=== PATIENT | male | born 1970 ===

== ENCOUNTER 2021-08-18 13:30 | Emergency (ER) | payer SELFPAY ==
[2021-08-18] MEDS ORDERED: predniSONE 20 MG TAB PO ONE (14:28)
[2021-08-18] MEDS ORDERED: FAMOTIDINE 20 MG TAB PO ONE (14:48)
[2021-08-18] MEDS ORDERED: diphenhydrAMINE 25 MG/10 ML ORAL LIQUID PO ONE (14:48)
--- NOTE | 2021-08-18 14:49 | Emergency Department Report ---
HPI - General Chief Complaint: Allergic Reaction Time Seen by Provider: 08/18/21 13:56 ED Past Medical Hx - Medications Home Medications: Home Medications Medication Instructions Recorded Confirmed Last Taken Type predniSONE 10 mg PO QDAY #10 tab 08/18/21 Unknown Rx predniSONE [Deltasone] 20 mg PO QDAY #5 tab 08/18/21 Unknown Rx predniSONE [Deltasone] 40 mg PO QDAY 5 Days #10 tablet 08/18/21 Unknown Rx ED Review of Systems ROS: Stated complaint: ALLERGIC REACTION, EYE SWOLLEN Other details as noted in HPI Physical Exam - Physical Exam Vital Signs: Vital Signs 08/18/21 08/18/21 08/18/21 13:33 13:59 14:02 Temperature 98 F 98.9 F Pulse Rate 75 63 Respiratory 20 15 Rate Blood Pressure 139/87 112/70 [Right] O2 Sat by Pulse 100 100 98 Oximetry ED Course Vital Signs 08/18/21 08/18/21 08/18/21 13:33 13:59 14:02 Temperature 98 F 98.9 F Pulse Rate 75 63 Respiratory 20 15 Rate Blood Pressure 139/87 112/70 [Right] O2 Sat by Pulse 100 100 98 Oximetry Critical care attestation.: If time is entered above; I have spent that time in minutes in the direct care of this critically ill patient, excluding procedure time. ED Disposition Condition: Stable
--- NOTE | 2021-08-18 14:55 | Emergency Department Report ---
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 He is not known to myself previously. The patient states he does not have a local primary care doctor. The patient was referred to the emergency room by a local medical clinic for nontraumatic facial swelling which is painless. The patient reports that he was in his usual state of health up until yesterday, while he was working on a tree outside. He believes he may have been exposed to other symptoms plant or pollen material, and subsequently, now has nontraumatic periorbital swelling, facial swelling, not involving his mouth, tongue, oropharynx, anterior chest and superior shoulder redness and itching, and weeping discharge from the left side of his face. He is very pruritic and itchy. He denies additional complaints. He specifically denies headache, neck pain, chest pain, abdominal pain, shortness of breath. He denies dysphonia. He states he does not take blood pressure medications. His symptoms have been present since yesterday. He does not have ocular pain per se. He has periorbital swelling and itching. He denies decrease in visual acuity. He reports that he does have family members who will be able to come by and pick him up if necessary. -: hour(s) Location: face Severity scale (0 -10): 0 Consistency: constant Improves with: none Worsens with: none - Related Data Previous Rx's Medication Instructions Recorded Last Taken Type EPINEPHrine [Epipen 2-Celio] 0.3 mg IM DAILY PRN #2 ml 08/18/21 Unknown Rx Famotidine [Pepcid] 20 mg PO BID PRN #30 tablet 08/18/21 Unknown Rx Mineral Oil/Hydrophil Petrolat 50 gm TP PRN PRN #1 oint...g. 08/18/21 Unknown Rx [Aquaphor Healing Ointment] diphenhydrAMINE [Benadryl] 50 mg PO Q8HR PRN #20 capsule 08/18/21 Unknown Rx predniSONE 10 mg PO QDAY #10 tab 08/18/21 Unknown Rx predniSONE [Deltasone] 20 mg PO QDAY #5 tab 08/18/21 Unknown Rx predniSONE [Deltasone] 40 mg PO QDAY 5 Days #10 tablet 08/18/21 Unknown Rx Allergies Allergy/AdvReac Type Severity Reaction Status Date / Time No Known Allergies Allergy Unverified 08/18/21 13:36 ED Review of Systems ROS: Stated complaint: ALLERGIC REACTION, EYE SWOLLEN Other details as noted in HPI Constitutional: denies: fever Eyes: denies: eye pain, eye discharge, vision change ENT: denies: throat pain, epistaxis Respiratory: denies: cough, shortness of breath Cardiovascular: denies: chest pain Gastrointestinal: denies: abdominal pain Skin: rash, pruritus Neurological: denies: weakness ED Past Medical Hx - Medications Home Medications: Home Medications Medication Instructions Recorded Confirmed Last Taken Type EPINEPHrine [Epipen 2-Celio] 0.3 mg IM DAILY PRN #2 ml 08/18/21 Unknown Rx Famotidine [Pepcid] 20 mg PO BID PRN #30 tablet 08/18/21 Unknown Rx Mineral Oil/Hydrophil Petrolat 50 gm TP PRN PRN #1 oint...g. 08/18/21 Unknown Rx [Aquaphor Healing Ointment] diphenhydrAMINE [Benadryl] 50 mg PO Q8HR PRN #20 capsule 08/18/21 Unknown Rx predniSONE 10 mg PO QDAY #10 tab 08/18/21 Unknown Rx predniSONE [Deltasone] 20 mg PO QDAY #5 tab 08/18/21 Unknown Rx predniSONE [Deltasone] 40 mg PO QDAY 5 Days #10 tablet 08/18/21 Unknown Rx ED Physical Exam - General Limitations: Language Barrier General appearance: alert, in no apparent distress, obese - Head Head exam: Present: atraumatic, normocephalic - Eye Eye exam: Present: PERRL, EOMI, periorbital swelling. Absent: nystagmus, periorbital tenderness - ENT ENT exam: Present: normal exam, normal orophraynx, mucous membranes moist, normal external ear exam, other (There is no stridor. There is no dysphonia. The tongue is midline. There is no elevation of the base of the tongue.) - Neck Neck exam: Present: normal inspection, full ROM. Absent: tenderness, meningismus - Respiratory Respiratory exam: Present: normal lung sounds bilaterally. Absent: respiratory distress, wheezes, rales, rhonchi, stridor, decreased breath sounds - Cardiovascular Cardiovascular Exam: Present: regular rate, normal rhythm, normal heart sounds. Absent: bradycardia, tachycardia, irregular rhythm, systolic murmur, diastolic murmur, rubs, gallop - GI/Abdominal GI/Abdominal exam: Present: soft. Absent: distended, tenderness, guarding, rebound, rigid, pulsatile mass - Rectal Rectal exam: Present: deferred - Extremities Exam Extremities exam: Present: normal inspection, full ROM, other (2+ pulses noted in the bilateral upper and lower extremities. There is no palpable cord. negative Homans sign. Muscular compartments are soft. The pelvis is stable.). Absent: pedal edema, calf tenderness - Back Exam Back exam: Present: normal inspection, full ROM. Absent: tenderness, CVA tenderness (R), CVA tenderness (L), paraspinal tenderness, vertebral tenderness - Neurological Exam Neurological exam: Present: alert, oriented X3, other (No facial droop. Tongue midline. Extraocular movements intact bilaterally. Facial sensation intact to light touch in V1, V2, V3 distribution bilaterally. 5 and a 5 strength in 4 extremities. Sensation intact to light touch in 4 extremities.). Absent: motor sensory deficit - Psychiatric Psychiatric exam: Present: normal affect, normal mood - Skin Skin exam: Present: warm, rash, erythema, vesicles, other (Nontender erythema and blanching noted on the anterior chest and bilateral shoulders. There is nontender periorbital swelling. Weeping discharge noted from the left face.) ED Course Vital Signs 08/18/21 08/18/21 08/18/21 13:33 13:59 14:02 Temperature 98 F 98.9 F Pulse Rate 75 63 Respiratory 20 15 Rate Blood Pressure 139/87 112/70 [Right] O2 Sat by Pulse 100 100 98 Oximetry ED Medical Decision Making - Lab Data Vital Signs 08/18/21 08/18/21 08/18/21 13:33 13:59 14:02 Temperature 98 F 98.9 F Pulse Rate 75 63 Respiratory 20 15 Rate Blood Pressure 139/87 112/70 [Right] O2 Sat by Pulse 100 100 98 Oximetry - Medical Decision Making Differential diagnosis, including but not limited to: Contact dermatitis, poison rashida dermatitis, arboreal dermatitis Assessment and plan: 51-year-old gentleman who is afebrile, with reassuring vital signs, in no distress, who is not stridulous, who is protecting his airway, saturating at 99% on room air, who is likely presenting with contact dermatitis after working on a tree and plant matter yesterday. Examination suggestive of poison rashida dermatitis, manifest by painless periorbital swelling, pruritus, nontender chest wall erythema, and weeping lesion from the left face. Lesions do not appear to be superinfected. Warm compresses, 2-week prednisone taper, as needed Benadryl, as needed epinephrine, as needed Pepcid, wet-to-dry dressing, and outpatient follow-up. Patient has no ocular pain, EOMI, PERRL, no indication of superinfection at this time. He is able to tolerate oral feeds without difficulty. He is observed in this ER without clinical deterioration. Examination today suggestive of contact dermatitis. Critical care attestation.: If time is entered above; I have spent that time in minutes in the direct care of this critically ill patient, excluding procedure time. ED Disposition Clinical Impression: Dermatitis Disposition: 01 HOME / SELF CARE / HOMELESS Is pt being admited?: No Does the pt Need Aspirin: No Condition: Stable Instructions: Poison Rashida Dermatitis Additional Instructions: Symptoms today suggestive of poison rashida dermatitis/contact dermatitis. Recommend that patient wash face with gentle soap and water once every 12-24 hours. Patient may apply Aquaphor ointment as often as is needed to skin rash and skin itching. Do not place this ointment directly on the eyes or eyeballs or eyelids. Patient may apply warm compresses to affected areas as often as as needed for symptomatic relief and supportive relief Patient is going to be started on a prednisone taper, he received first dose in the emergency room. Patient is to take 40 mg of prednisone for 5 days, followed by 20 mg of prednisone for 5 days, followed by 10 mg of prednisone for 5 days. Patient may take the Pepcid and Benadryl as needed for sensation of itching and scratching. Use the epinephrine pen only if patient develops inability to speak, inability to breathe, throat pain and/or throat swelling. Recommend follow-up with a primary care doctor or fish protector within the next 3 to 5 days for repeat checkup and evaluation. For the patient's convenience, local primary care providers have been listed that he may follow-up with. Please return to the emergency room right away with new pain, worsened pain, migration of pain, projectile vomiting, change in mental status, confusion, inability to tolerate liquid feeds, new, worsened or different symptoms not present on the initial emergency room evaluation Los sntomas actuales sugieren dermatitis por hiedra venenosa / dermatitis de contacto. Recomiende que el paciente se lave la lynn con agua y jabn suave trino vez cada 12-24 horas. El paciente puede aplicar el ungento Aquaphor con la frecuencia que sea necesaria para el sarpullido y la picazn de la piel. No coloque eli ungento directamente sobre los ojos, globos oculares o prpados. El paciente puede aplicar compresas tibias en las reas afectadas de paz a menudo doc sea necesario para el alivio de los sntomas y el alivio de apoyo El paciente va a comenzar con trino reduccin gradual de prednisona, recibi la primera dosis en la carmen de emergencias. El paciente debe kayy 40 mg de prednisona tim 5 galvez, seguidos de 20 mg de prednisona itm 5 galvez, seguidos de 10 mg de prednisona tim 5 galvez. El paciente puede kayy Pepcid y Benadryl segn sea necesario para la sensacin de picazn y rascado. Utilice la pluma de epinefrina slo si el paciente desarrolla incapacidad para hablar, incapacidad para respirar, dolor de garganta y / o hinchazn de garganta. Recomiende un seguimiento con un mdico de atencin primaria o un dermatlogo dentro de los prximos 3 a 5 galvez para repetir el chequeo y la evaluacin. Para la conveniencia del paciente, se hale enumerado los proveedores de atencin primaria locales con los que puede realizar un seguimiento. Regrese a la carmen de emergencias de inmediato con un nuevo dolor, empeoramiento del dolor, migracin del dolor, vmitos en proyectil, cambio en el estado mental, confusin, incapacidad para tolerar alimentos lquidos, sntomas nuevos, empeorados o diferentes que no estn presentes en la evaluacin inicial de la carmen de emergencias. Prescriptions: predniSONE [Deltasone] 20 mg PO QDAY #5 tab predniSONE [Deltasone] 40 mg PO QDAY 5 Days #10 tablet predniSONE 10 mg PO QDAY #10 tab Referrals: MEETA MACARIO MD [Staff Physician] - 3-5 Days [facility] [Provider Group] - 3-5 Days Forms: Work/School Release Form(ED) Print Language: UPPER SORBIAN
[2021-08-18] MEDS ORDERED: LORazepam 2 MG/ML VIAL ONE (16:03)
[2021-08-18] MEDS ORDERED: HALOPERIDOL LACTATE 5 MG/1 ML INJ ONE (16:03)
[2021-08-18 18:43] VITALS: BP 113/86
== END 2021-08-18 18:43 | disposition home or self-care (01) ==
LOC: EDBD → ED 13:30
DX: L30.9 Dermatitis, unspecified (principal); Z79.899 Other long term (current) drug therapy
CPT/HCPCS: 99282; J1630; J2060; J7512; Q0163